=== PATIENT | male | born 1965 | race Caucasian/White ===

== ENCOUNTER 2019-04-20 14:41 | Emergency (ER) | payer BC ==
--- NOTE | 2019-04-20 16:13 | RAD REPORT ---
EXAM DESCRIPTION: Randa Cosby (2 Views)04/20/2019 3:55 pm CLINICAL HISTORY: Chest pain COMPARISON: None FINDINGS: The lungs appear clear of acute infiltrate. The heart is normal size IMPRESSION: No acute abnormalities displayed
--- NOTE | 2019-04-20 18:48 | ER ---
Nurse's Notes [facility] Name: Bandar Snyder Age: 53 yrs Sex: Male : 1965 Arrival Date: 04/20/2019 Time: 14:43 Bed 14 Private MD: Howard Leach B Diagnosis: Radiculopathy, cervical region;Chest pain, unspecified Presentation: 04/20 14:45 Presenting complaint: Patient states: Left arm pain, he has had this pain for several aj1 years and was told by his doctor its a nerve problem. States that sometimes he feels it in his chest and that scares him. Transition of care: patient was not received from another setting of care. Onset of symptoms was April 20, 2019. Risk Assessment: Do you want to hurt yourself or someone else? Patient reports no desire to harm self or others. Initial Sepsis Screen: Does the patient meet any 2 criteria? No. Patient's initial sepsis screen is negative. Does the patient have a suspected source of infection? No. Patient's initial sepsis screen is negative. Care prior to arrival: None. 14:45 Method Of Arrival: Ambulatory aj 14:45 Acuity: KRISTY 3 aj1 Triage Assessment: 14:46 General: Appears in no apparent distress. comfortable, Behavior is calm, cooperative, aj1 appropriate for age. Pain: Complains of pain in anterior aspect of left upper chest and left arm. Neuro: Level of Consciousness is awake, alert, obeys commands. Cardiovascular: Patient's skin is warm and dry. Respiratory: Airway is patent Respiratory effort is even, unlabored, Respiratory pattern is regular, symmetrical. Historical: - Allergies: 14:46 No Known Allergies; aj1 - Home Meds: 14:46 gabapentin 600 mg oral tab 1 tab as needed [Active]; aj1 - PMHx: 14:46 None; aj1 - PSHx: 14:46 Appendectomy; elbow surgery; aj1 - Immunization history:: Flu vaccine is not up to date. - Coronavirus screen:: The patient has NOT traveled to [place] in the past 14 days. - Social history:: Smoking status: Patient/guardian denies using tobacco. - Ebola Screening: : Patient denies travel to an Ebola-affected area in the 21 days before illness onset. Screenin:15 Abuse screen: Denies threats or abuse. Denies injuries from another. Nutritional jl7 screening: No deficits noted. Tuberculosis screening: No symptoms or risk factors identified. Fall Risk None identified. Assessment: 15:15 General: Appears in no apparent distress. uncomfortable, Behavior is calm, cooperative, jl7 appropriate for age. Pain: Complains of pain in anterior aspect of left upper chest Pain radiates to left arm Pain currently is 6 out of 10 on a pain scale. Pain began years ago. Neuro: Level of Consciousness is awake, alert, obeys commands, Oriented to person, place, time, situation. Cardiovascular: Patient's skin is warm and dry. Respiratory: Airway is patent Respiratory effort is even, unlabored, Respiratory pattern is regular, symmetrical. Derm: Skin is pink, warm \T\ dry. 16:45 Reassessment: Patient appears in no apparent distress at this time. Patient and/or jl7 family updated on plan of care and expected duration. Pain level reassessed. Patient is alert, oriented x 3, equal unlabored respirations, skin warm/dry/pink. General: Behavior is anxious. Pain: Denies pain. 17:45 Reassessment: Patient appears in no apparent distress at this time. No changes from jl7 previously documented assessment. Patient and/or family updated on plan of care and expected duration. Pain level reassessed. Patient is alert, oriented x 3, equal unlabored respirations, skin warm/dry/pink. Vital Signs: 14:46 BP 142 / 80; Pulse 81; Resp 18; Temp 98.1; Pulse Ox 98% on R/A; Weight 83.91 kg (R); aj1 Height 5 ft. 8 in. (172.72 cm) (R); Pain 6/10; 16:41 BP 131 / 72; Pulse 76; Resp 16 S; Pulse Ox 100% on R/A; Pain 0/10; jl7 17:30 BP 125 / 80; Pulse 75; Resp 16 S; Pulse Ox 100% on R/A; Pain 0/10; jl7 18:30 BP 128 / 79; Pulse 78; Resp 16 S; Pulse Ox 100% on R/A; jl7 14:46 Body Mass Index 28.13 (83.91 kg, 172.72 cm) [facility] ED Course: 14:43 Patient arrived in ED. mr 14:44 Howard Leach MD is Private Physician. mr 14:46 Triage completed. aj1 14:46 Arm band placed on Patient placed in an exam room. aj1 14:52 Gab[facility] Bravo [facility]-C [facility]. snw 14:52 Miguel Harry MD is Attending Physician. snw 15:05 Hardeep Minaya, RN is Primary Nurse. jl7 15:15 Patient has correct armband on for positive identification. Placed in gown. Bed in low jl7 position. Call light in reach. Side rails up X 1. court recording monitor on. Pulse ox on. NIBP on. Warm blanket given. 15:20 Initial lab(s) drawn, by me, sent to lab. jl7 15:29 Patient maintains SpO2 saturation greater than 95% on room air. jl7 18:19 Repeat lab(s) drawn. by me, sent to lab. jp3 18:19 Troponin (emerg Dept Use Only) Sent. jp3 18:46 Juan A Goodrich MD is Referral Physician. snw 19:11 No provider procedures requiring assistance completed. Patient did not have IV access jl7 during this emergency room visit. Administered Medications: No medications were administered Outcome: 18:47 Discharge ordered by MD. snw 19:11 Discharged to home ambulatory. jl7 19:11 Condition: stable 19:11 Discharge instructions given to patient, family, Instructed on discharge instructions, follow up and referral plans. medication usage, Demonstrated understanding of instructions, follow-up care, medications, Prescriptions given X 1. 19:12 Patient left the ED. jl7 Signatures: Shae Erwin, RN RN aj1 Gaby Bravo FNP-C [employer] SUPERINTENDENT-Csnw Di Stearns mr Hardeep Minaya, RN RN jl7 Mike Ireland jp3
--- NOTE | 2019-04-20 18:48 | EDPHYS ---
Physician Documentation [facility] Name: Bandar Snyder Age: 53 yrs Sex: Male : 1965 Arrival Date: 04/20/2019 Time: 14:43 Bed 14 Private MD: Howard Leach B ED Physician Miguel Harry HPI: 04/20 15:33 This 53 yrs old Male presents to ER via Ambulatory with complaints of Chest snw Pain, Arm Pain. 15:33 Onset: The symptoms/episode began/occurred gradually, long standing with exacerbations. snw Associated signs and symptoms: The patient has no apparent associated signs or symptoms. The patient has experienced similar episodes in the past, multiple times. sees Dr. Leach, considering MRI and f/u neuro. Suggest pt see Cardio as this long standing pain frightens him when it radiates to chest. S/s improve with Gabapentin. Historical: - Allergies: 14:46 No Known Allergies; aj1 - Home Meds: 14:46 gabapentin 600 mg oral tab 1 tab as needed [Active]; aj1 - PMHx: 14:46 None; aj1 - PSHx: 14:46 Appendectomy; elbow surgery; aj1 - Immunization history:: Flu vaccine is not up to date. - Coronavirus screen:: The patient has NOT traveled to [place] in the past 14 days. - Social history:: Smoking status: Patient/guardian denies using tobacco. - Ebola Screening: : Patient denies travel to an Ebola-affected area in the 21 days before illness onset. ROS: 15:30 Constitutional: Negative for fever, chills, and weight loss, Eyes: Negative for injury, snw pain, redness, and discharge, ENT: Negative for injury, pain, and discharge, Neck: Negative for injury, pain, and swelling, Cardiovascular: Negative for chest pain, palpitations, and edema, Respiratory: Negative for shortness of breath, cough, wheezing, and pleuritic chest pain, Abdomen/GI: Negative for abdominal pain, nausea, vomiting, diarrhea, and constipation, Back: Negative for injury and pain, : Negative for injury, bleeding, discharge, and swelling, MS/Extremity: Negative for injury and deformity, Skin: Negative for injury, rash, and discoloration, Neuro: Negative for headache, weakness, and seizure, + numbness and tingling pain to left arm for years, sometimes the pain moves to left chest and pt becomes nervous. Denies diaphoresis, shortness of breath, nausea. Psych: Negative for depression, anxiety, suicide ideation, homicidal ideation, and hallucinations. Exam: 15:02 ECG was reviewed by the Attending Physician. snw 15:22 Constitutional: This is a well developed, well nourished patient who is awake, alert, snw and in no acute distress. Head/Face: Normocephalic, atraumatic. Eyes: Pupils equal round and reactive to light, extra-ocular motions intact. Lids and lashes normal. Conjunctiva and sclera are non-icteric and not injected. Cornea within normal limits. Periorbital areas with no swelling, redness, or edema. ENT: Nares patent. No nasal discharge, no septal abnormalities noted. Tympanic membranes are normal and external auditory canals are clear. Oropharynx with no redness, swelling, or masses, exudates, or evidence of obstruction, uvula midline. Mucous membranes moist. Neck: Trachea midline, no thyromegaly or masses palpated, and no cervical lymphadenopathy. Supple, full range of motion without nuchal rigidity, or vertebral point tenderness. No Meningismus. Chest/axilla: Normal chest wall appearance and motion. Nontender with no deformity. No lesions are appreciated. Cardiovascular: Regular rate and rhythm with a normal S1 and S2. No gallops, murmurs, or rubs. Normal PMI, no JVD. No pulse deficits. Respiratory: Lungs have equal breath sounds bilaterally, clear to auscultation and percussion. No rales, rhonchi or wheezes noted. No increased work of breathing, no retractions or nasal flaring. Abdomen/GI: Soft, non-tender, with normal bowel sounds. No distension or tympany. No guarding or rebound. No evidence of tenderness throughout. Back: No spinal tenderness. No costovertebral tenderness. Full range of motion. Skin: Warm, dry with normal turgor. Normal color with no rashes, no lesions, and no evidence of cellulitis. MS/ Extremity: Pulses equal, no cyanosis. Neurovascular intact. Full, normal range of motion. Neuro: Awake and alert, GCS 15, oriented to person, place, time, and situation. Cranial nerves II-XII grossly intact. Motor strength 5/5 in all extremities. Sensory grossly intact. Cerebellar exam normal. Normal gait. 15:22 Psych: Affect is anxious. Vital Signs: 14:46 BP 142 / 80; Pulse 81; Resp 18; Temp 98.1; Pulse Ox 98% on R/A; Weight 83.91 kg (R); aj1 Height 5 ft. 8 in. (172.72 cm) (R); Pain 6/10; 16:41 BP 131 / 72; Pulse 76; Resp 16 S; Pulse Ox 100% on R/A; Pain 0/10; jl7 17:30 BP 125 / 80; Pulse 75; Resp 16 S; Pulse Ox 100% on R/A; Pain 0/10; jl7 18:30 BP 128 / 79; Pulse 78; Resp 16 S; Pulse Ox 100% on R/A; jl7 14:46 Body Mass Index 28.13 (83.91 kg, 172.72 cm) aj1 MDM: 14:53 Patient medically screened. snw 18:48 Data reviewed: vital signs, nurses notes. Data interpreted: Pulse oximetry: on room air snw is 100 %. Interpretation: normal. Counseling: I had a detailed discussion with the patient and/or guardian regarding: the historical points, exam findings, and any diagnostic results supporting the discharge/admit diagnosis, lab results, radiology results, the need for outpatient follow up, to return to the emergency department if symptoms worsen or persist or if there are any questions or concerns that arise at home. Special discussion: Based on the patient's history, exam, and Dx evaluation, there is no indication for emergent intervention or inpatient Tx. It is understood by the patient/guardian that if the Sx's persist or worsen they need to return immediately for re-evaluation. Based on the history and exam findings, there is no indication for further emergent testing or inpatient evaluation. I discussed with the patient/guardian the need to see the containers sales representative for further evaluation of the symptoms. I discussed with the patient/guardian the need to see the neurologist for further evaluation of the symptoms. I discussed with the patient/guardian the need to see the primary care provider for further evaluation of the symptoms. 19:02 ED course: pt relatively sure s/s are not related to any heart problem and pt has very snw low risk factors. Worry of chest pain however make pt uncomfortable so rapid rule out protocol initiated and was normal, pt reassured and will follow up with PCP and Neuro and Cardiology. 04/20 15:05 Order name: Troponin (emerg Dept Use Only) [facility] 04/20 15:05 Order name: ESR [facility] 04/20 15:51 Order name: Troponin (Emerg Dept Use Only); Complete Time: 15:53 EDMS 04/20 15:54 Order name: Sedimentation Rate, [place]; Complete Time: 15:53 EDMS 04/20 18:07 Order name: Troponin (emerg Dept Use Only) [facility] 04/20 18:42 Order name: Troponin (Emerg Dept Use Only); Complete Time: 18:44 EDMS 04/20 14:53 Order name: EKG; Complete Time: 14:54 w 04/20 14:53 Order name: EKG - Nurse/Tech; Complete Time: 15:06 w 04/20 15:05 Order name: Chest Pa And Lat (2 Views) XRAY [facility] 04/20 16:21 Order name: RAD; Complete Time: 16:28 EDMS 04/20 18:07 Order name: EKG; Complete Time: 18:09 snw Administered Medications: No medications were administered Disposition: 04/21 08:14 Co-signature as Attending Physician, Miguel Harry MD I agree with the assessment and abe plan of care. Disposition: 04/20/19 18:47 Discharged to Home. Impression: Radiculopathy, cervical region, Chest pain, unspecified. - Condition is Stable. - Discharge Instructions: Cervical Radiculopathy, Nonspecific Chest Pain, Chest Wall Pain, Aspirin and Your Heart, Heat Therapy. - Prescriptions for orphenadrine citrate 100 mg Oral Tablet Sustained Release - take 1 tablet by ORAL route 2 times per day As needed; 20 tablet. - Work release form, Medication Reconciliation Form, Thank You Letter, Antibiotic Education, Prescription Opioid Use form. - Follow up: Juan A Goodrich MD; When: 2 - 3 days; Reason: Recheck today's complaints, Continuance of care, Re-evaluation by your physician. Follow up: Emergency Department; When: As needed; Reason: Worsening of condition. Signatures: Dispatcher [employer] EDShae Medrano RN RN aj1 Miguel Harry MD MD cha Therrien, Shelly, SOFTWARE TEST MANAGER-C SOFTWARE TEST MANAGER-Csnw Hardeep Minaya, RN RN jl7 Corrections: (The following items were deleted from the chart) 04/20 19:12 18:47 04/20/2019 18:47 Discharged to Home. Impression: Radiculopathy, cervical region; jl7 Chest pain, unspecified. Condition is Stable. Forms are Medication Reconciliation Form, Thank You Letter, Antibiotic Education, Prescription Opioid Use. Follow up: Juan A Goodrich; When: 2 - 3 days; Reason: Recheck today's complaints, Continuance of care, Re-evaluation by your physician. Follow up: Emergency Department; When: As needed; Reason: Worsening of condition. snw
[2019-04-20 19:32] VITALS: TEMP 98.1
[2019-04-20 19:33] VITALS: O2SAT 100
[2019-04-20 19:36] VITALS: BP 128/79
--- NOTE | 2019-04-21 08:10 | EKG ---
Test Date: 2019-04-20 Test Time: 15:00:37 Pad Cutter: ROSALEE MEASUREMENT RESULTS: Intervals: Rate: 76 AZ: 152 QRSD: 100 QT: 384 QTc: 432 Bly: P: 50 AZ: 152 QRS: 73 T: 10 INTERPRETIVE STATEMENTS: Normal sinus rhythm Nonspecific T wave abnormality Abnormal ECG Compared to ECG 10/02/2012 18:26:42 T-wave abnormality now present Sinus bradycardia no longer present Electronically Signed On 04-21-19 08:09:29 SOLAR PANEL TECHNICIAN by Juan A Goodrich
--- NOTE | 2019-04-21 08:10 | EKG ---
Test Date: 2019-04-20 Test Time: 18:26:59 Breaker Oiler: ROSALEE MEASUREMENT RESULTS: Intervals: Rate: 65 AK: 152 QRSD: 100 QT: 418 QTc: 434 Conifer: P: 53 AK: 152 QRS: 75 T: 6 INTERPRETIVE STATEMENTS: Normal sinus rhythm Normal ECG Compared to ECG 04/20/2019 15:00:37 T-wave abnormality no longer present Electronically Signed On 04-21-19 08:09:21 BUOY TENDER by Juan A Goodrich
== END 2019-04-20 19:12 | disposition home or self-care (01) ==
LOC: ER 14:41
DX: M54.12 Radiculopathy, cervical region (principal)
CPT/HCPCS: 36415; 71046; 84484; 85652; 93005; 99284